=== PATIENT | female | born 1985 | race Two or more races ===

== ENCOUNTER 2025-06-26 18:01 | Emergency (ER) | payer OTHER ==
[~2025-06-26] VITALS: Ht 160 cm; Wt 67.1 kg
[2025-06-26] MEDS ORDERED: CELEBREX50 MG (18:15)
[2025-06-26] MEDS ORDERED: DEXAMETHASONE SODIUM PHOSPHATE 4 MG/ML VIAL IM STA (19:13)
[2025-06-26] MEDS ORDERED: ACETAMINOPHEN 500 MG GEL..CAP PO ONE ×2 (19:15→19:42)
[2025-06-26] MEDS ORDERED: DEXAMETHASONE SODIUM PHOSPHATE 4 MG/ML VIAL ONE (19:43)
== END 2025-06-26 22:07 | disposition home or self-care (01) ==
LOC: ER 18:01
DX: M79.642 Pain in left hand (principal); Z88.8 Allergy status to other drugs, medicaments and biological substances; M79.7 Fibromyalgia